=== PATIENT | female | born 1945 | race Caucasian/White ===

== ENCOUNTER → 2016-06-03 | Outpatient (CLI) | payer MEDICARE, OTHER | LOC: RAD 07:32 | PROVIDERS: ATTEND Family Medicine | DX: R93.8 Abnormal findings on diagnostic imaging of other specified body structures (principal) | CPT/HCPCS: 76856 ==

== ENCOUNTER → 2016-09-08 | Outpatient (CLI) | payer MEDICARE, OTHER ==
--- NOTE | 2016-09-08 14:11 | Diagnostic Imaging Report ---
INDICATION: Cough. COMPARISON: 01/01/2016. FINDINGS: No new airspace disease. Fine subpleural linear opacities in the lung bases are unchanged and chronic in nature. No pleural effusion or pneumothorax. Normal heart size. Normal pulmonary vasculature. Probable small hiatus hernia. Degenerative changes in thoracic spine are similar. IMPRESSION: 1. Stable chronic bibasilar linear opacities likely due to scar or senescent change. If there is concern for pulmonary fibrosis, a high-resolution CT chest could be performed. 2. No new airspace disease. 3. Probable small hiatus hernia. Dictated by: Dictated on workstation # [id number]
== END ==
LOC: RAD 13:29
PROVIDERS: ATTEND Family Medicine
DX: J41.8 Mixed simple and mucopurulent chronic bronchitis (principal); I34.1 Nonrheumatic mitral (valve) prolapse; I49.8 Other specified cardiac arrhythmias; R09.02 Hypoxemia; I47.1 Supraventricular tachycardia
CPT/HCPCS: 71020; 93005; 93306; 94620

== ENCOUNTER → 2016-09-15 | Outpatient (CLI) | payer MEDICARE, OTHER ==
[2016-09-15 15:27] VITALS: BP 195/93
--- NOTE | 2016-09-15 15:27 | Urgent Care T Sheet Gen (E) ---
Intake General Temperature (Fahrenheit): 98.9 Pulse: 79 Blood Pressure Systolic: 195 Blood Pressure Diastolic: 93 (initial BP was 195/93. Recheck after sitting was 165/82) Respirations: 18 SPO2: 96 Description of Symptoms patient presents complaining of elevated BP. Patient states since June she has had productive cough and L sided chest pain. Has a known history of Mitral valve prolapse. Had a complete cardiac workup recently including EKG, echo, chest xray. States everything came back ok. Over the past few weeks, her intermittent L sided chest pain has become constant. Patient is prescribed Losartan 50mg daily however doesn't take it every day. Last dose was last night. Patient also uses CPAP and 1 L of O2 daily. Sees Dr Aviles tomorrow for f/u appt. Patient came to today regarding her elevated BP. States she had a headache and could feel her heart pounding while at work. Patient checked her BP there and it was 185/101. Came to because of that. Respiratory Constitutional Symptoms: No syptoms reported EENTM: No symptoms reported Respiratory: No symptoms reported Cardiovascular: Chest pain Other (heart pounding) Neurological: Headache All Other Systems Reviewed Remaining Systems: All other systems reviewed with negative findings Physical Exam Physical Exam General Appearance: WD/WN No apparent distress Respiratory Exam: Lungs clear Normal breath sounds Cardiovascular Exam: Regular rate, rhythm Departure Urgent Care Impression Impression: Primary Impression: Elevated blood pressure reading Departure Disposition: HOME OR SELF-CARE Condition: Stable Referrals: CARLOS AVILES MD (PCP) Additional Instructions: Patient's blood pressured lessened to 165/82 while in clinic. Long discussion with patient regarding workup, treatment, etc. I initially suggested the patient present to the ER for evaluation and possible IV meds, if appropriate. Patient refused to go to ER. I then called her PCP for his recommendations since he has been seeing her regularly and has been working her up lately from a cardiac standpoint. He said she is OK to DC home. Instructed to take her Losartan and rest and f/u with him tomorrow as scheduled. Patient agreed to plan of care. If symptoms worsen, her chest pain becomes more severe, LOPEZ returns or vision changes, she is to immediately report to the ER. Patient understands. All questions were answered. End of report . BRYCE SMART September 15, 2016 14:02
== END ==
LOC: MHUC 12:58
PROVIDERS: ATTEND Physician Assistant
DX: R03.0 Elevated blood-pressure reading, without diagnosis of hypertension (principal)
CPT/HCPCS: 99213